=== PATIENT | female | born 1955 | race Caucasian/White ===

== ENCOUNTER → 2025-04-01 14:20 | Outpatient (REF) | payer OTHER, SELFPAY | LOC: HWRAD 14:20 | PROVIDERS: ATTENDING PHYSICIAN Podiatrist Foot & Ankle Surgery; FAMILY PHYSICIAN Family Medicine | DX: M20.12 Hallux valgus (acquired), left foot (principal); M20.41 Other hammer toe(s) (acquired), right foot | CPT/HCPCS: 73630 ==